=== PATIENT | male | born 1970 | race Hispanic/Latino ===

== ENCOUNTER 2022-10-31 19:43 | Emergency (ER) | payer OTHER ==
--- NOTE | 2022-10-31 20:43 | RAD REPORT ---
EXAM DESCRIPTION: CT - Head Brain Wo Cont - 10/31/2022 8:37 pm CLINICAL HISTORY: CONFUSED Headache, drowsiness COMPARISON: Facial Bones W/ Mpr dated 10/31/2022 TECHNIQUE: All CT scans are performed using dose optimization technique as appropriate and may inclu de automated exposure control or mA/KV adjustment according to patient size. FINDINGS: No intracranial hemorrhage, hydrocephalus or extra-axial fluid collection.No areas of brai n edema or evidence of midline shift. The paranasal sinuses and mastoids are clear. The calvarium is intact. IMPRESSION: No acute intracranial abnormality.
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
[2022-10-31 22:06] VITALS: TEMP 98.1; O2SAT 98
[2022-10-31 22:08] VITALS: BP 109/80
== END 2022-10-31 21:33 | disposition home or self-care (01) ==
LOC: ER 19:43
DX: S00.31XA Abrasion of nose, initial encounter (principal); F22 Delusional disorders
CPT/HCPCS: 70450; 70486; 76377